=== PATIENT | female | born 1990 | race Caucasian/White ===

== ENCOUNTER → 2016-10-01 | Outpatient (CLI) | payer OTHER ==
[~2016-10-01] MED LIST: BCPILLS PO; MTR600X PO; SERT25TA PO
== END | disposition home or self-care (01) ==
LOC: C.PAPS 12:49
PROVIDERS: ATTEND Obstetrics & Gynecology
DX: Z01.419 Encounter for gynecological examination (general) (routine) without abnormal findings (principal)

== ENCOUNTER → 2016-12-02 | Outpatient (CLI) | payer OTHER | END | disposition home or self-care (01) | LOC: C.LAB1850 17:05 | PROVIDERS: ATTEND Obstetrics & Gynecology | DX: Z33.1 Pregnant state, incidental (principal) ==

== ENCOUNTER → 2016-12-04 | Day surgery (SDC) | payer OTHER ==
[2016-12-03 15:44] LABS: BASO % 0.3 %; BASO ABS # 0.02 K/uL (0-0.2); COMPLETE YES; EOS % 4.1 %; HEMATOCRIT 40.5 % (37-47); IG% 0.3 %; LYMPH % 26.5 %; LYMPH ABS # 1.83 K/uL (1.2-3.4); MEAN CELL VOLUME 91.6 fL (80-100); MEAN CORPUSCULAR HEMOGLOBIN 31.7 pg (25-34); MEAN CORPUSCULAR HGB CONC 34.6 g/dl (32-36); MEAN PLATELET VOLUME 10.1 fL (7.4-10.4); MONO % 6.7 %; NEUT % 62.1 %; PLATELET COUNT 300 K/uL (130-400); RED BLOOD COUNT 4.42 M/uL (4.2-5.4); WHITE BLOOD COUNT 6.91 K/uL (4.8-10.8)
[~2016-12-04] VITALS: Ht 165.1 cm; Wt 66.0 kg
[~2016-12-04] MED LIST changes: +ATROPINE SULFATE 0.1 MG/ML 5ML SYR IV PRN; +DEXAMETHASONE SOD INJ 4 MG/ML VIAL ONE; +DOXYCYCLINE HYCLATE 100 MG CAP PO SCH; +EpHEDrine SULFATE INJ 50 MG/ML AMP IV PRN; +FENTANYL CITRATE INJ 50 MCG/1 ML 2 ML VIAL IV PRN; +FENTANYL CITRATE INJ 50 MCG/1 ML 2 ML VIAL ONE; +FLUMAZENIL 0.1 MG/1 ML 10 ML VIAL IV PRN; +IBUPROFEN 600 MG TAB PO PRN; +KETOROLAC TROMETHAMINE 30 MG/ML VIAL ONE; +LABETALOL HCL IV 5 MG/ML 20ML IV PRN; +LACTATED RINGER'S 1000ML 1,000 ML IV SCH; +LIDOCAINE HCL 2% 2 ML VIAL (20MG/ML) ONE; +MIDAZOLAM HCL 1 MG/ML 2ML VIAL ONE; +NALOXONE HCL 0.4 MG/1 ML VIAL/CARP IV PRN; +ONDANSETRON INJ 2 MG/ML 2 ML VIAL IV PRN; +ONDANSETRON INJ 2 MG/ML 2 ML VIAL ONE; +OXYCODONE/ACETAMINOPHEN 5-325 TAB PO PRN; +OXYTOCIN INJ 10 UNITS/ML VIAL ONE; +PROMETHAZINE HCL INJ 12.5 MG in SODIUM CHLORIDE 0.9% 50ML 50 ML IV PRN; +PROMETHAZINE HCL INJ 25 MG in SODIUM CHLORIDE 0.9% 50ML 50 ML IV PRN; +PROPOFOL IV EMULSION 10 MG/ML 20 ML VIAL IV ONE; +SODIUM CHLORIDE 0.9% 1000ML 1,000 ML IV SCH
[2016-12-04 08:19] VITALS: BP 132/68; PULSE 82; TEMP 36.6; O2SAT 100; Ht 165.1 cm; Wt 66.0 kg
--- NOTE | 2016-12-04 09:53 | History & Physical Bridge Note ---
H&P Re-Evaluation Bridge Note: I have examined the patient, reviewed the History & Physical and in the interval since the performance of the History & Physical I have noted the following changes of clinical significance: No changes noted
--- NOTE | 2016-12-04 11:00 | Discharge Instructions ---
Discharge Instructions Date of Service Dec 04, 2016. Admission Reason for Admission: Missed Discharge Discharge Diagnosis / Problem: recovery from miscarriage Discharge Goals Goal(s): Routine recovery after surgery Activity Recommendations Activity Limitations: per Instructions/Follow-up section . Instructions / Follow-Up Instructions / Follow-Up ACTIVITY RECOMMENDATIONS: * Avoid tampons, douching, hot tubs, pools, and intercourse until bleeding has stopped. * May shower as usual. * No strenuous activity for 24-48 hours. After 24-48 hours, you may do anything you feel like doing (driving and sports are okay). SPECIAL CARE INSTRUCTIONS: Special Diet: * Mild nausea may occur in the immediate post-operative period. * Take clear liquids such as tea, cola or bouillon until all nausea has subsided; you may then resume your normal diet. Special Care: * Light bleeding and vaginal spotting can last from a few days to 3-4 weeks. Call your doctor if bleeding becomes heavier than the heaviest part of your period. * Check your temperature twice a day for one week. If it goes above 100.4 degrees Fahrenheit (38.0 Celsius), notify your doctor. * Call your doctor's office for an appointment for 6 weeks after your surgery. FOLLOW-UP VISIT: Call your doctor's office for an appointment for 6 weeks after your surgery. Current Hospital Diet Patient's current hospital diet: Discharge Diet Recommended Diet: Regular Diet Procedures Procedures Performed: Dilation, Evacuation, and Curettage Pending Studies Studies pending at discharge: no Medical Emergencies . Who to Call and When: Medical Emergencies: If at any time you feel your situation is an emergency, please call 911 immediately. . Non-Emergent Contact Non-Emergency issues call your: Industrial [employer] Safety Professor . . "Provider Documentation" section prepared by Jennifer Poon. . VTE Core Measure Inpt VTE Proph given/why not?: Treatment not indicated
--- NOTE | 2016-12-04 11:22 | Anesthesiology Progress Note ---
Anesthesia Post Op Note Date & Time Dec 04, 2016 at 11:21 Vital Signs Pain Intensity: 4 Vital Signs Past 12 Hours Date Time Temp Pulse Resp B/P Pulse Ox O2 Delivery O2 Flow Rate FiO2 12/04/16 11:06 90 15 100 12/04/16 11:06 91 15 12/04/16 11:05 124/76 12/04/16 11:01 70 13 100 12/04/16 11:01 72 13 12/04/16 11:00 133/84 12/04/16 10:56 72 13 12/04/16 10:56 71 13 100 12/04/16 10:55 128/84 12/04/16 10:51 87 16 12/04/16 10:51 85 16 100 12/04/16 10:50 135/86 12/04/16 10:47 137/86 12/04/16 10:46 36.4 98 16 137/86 100 Mask 10 12/04/16 08:19 36.6 82 20 132/68 100 Room Air Notes Mental Status: alert / awake / arousable, participated in evaluation Pt Amnestic to Procedure: Yes Nausea / Vomiting: adequately controlled Pain: adequately controlled Airway Patency, RR, SpO2: stable & adequate BP & HR: stable & adequate Hydration State: stable & adequate Anesthetic Complications: no major complications apparent
[2016-12-04 11:34] VITALS: BP 133/74; PULSE 73; TEMP 37; O2SAT 99
[2016-12-04 11:44] VITALS: BP 133/74; PULSE 73; TEMP 37; O2SAT 99
[2016-12-04 12:05] VITALS: BP 142/81; PULSE 86; O2SAT 100
[2016-12-04 12:35] VITALS: BP 128/73; PULSE 82; TEMP 36.6; O2SAT 100
--- NOTE | 2016-12-04 13:45 | OPERATIVE REPORT ---
DATE OF OPERATION: 12/04/2016 PREOPERATIVE DIAGNOSIS: Missed at 9 weeks. POSTOPERATIVE DIAGNOSIS: Same. PROCEDURE: D\T\E. ANESTHESIA: General. BLOOD LOSS: 50 mL. HISTORY OF PRESENT ILLNESS: The patient is a 26-year-old G1, P0 white female who had been taking oral contraceptives but had a lapse in her prescription. She had a positive test and following this had a quantitative hCG of 12,000. An ultrasound was done to confirm viability and dating and she was noted to have no heart activity present with a 9-week pole. The patient had been counseled on options on management of the missed . She wishes to proceed with a D\T\E. She understands the risks of procedure and is willing to proceed. GROSS FINDINGS: Uterus is gravid and consistent with 9 weeks gestation. There are no adnexal masses present. Cervix is long, thick and closed. PROCEDURE IN DETAIL: The patient received adequate general anesthetic, she was prepped and draped in the usual sterile fashion. After bladder was emptied, a weighted speculum was placed in the vagina and the anterior lip of the cervix was grasped with a single tooth tenaculum. Cervix was then dilated to a #29 Hanks dilator. A #8 evacuator was used to evacuate the contents of the uterus. Post evacuation, curettage revealed good uterine cry throughout. Bleeding was satisfactory at the end of the case. The patient tolerated the procedure well and the tenaculum site also had satisfactory hemostasis. I attest to the content of the Intraoperative Record and any orders documented therein. Any exceptio ns are noted below.
== END | disposition home or self-care (01) ==
LOC: C.ACU 07:32
PROVIDERS: ATTEND Obstetrics & Gynecology
DX: O02.1 Missed abortion (principal); Z3A.09 9 weeks gestation of pregnancy

== ENCOUNTER → 2017-02-24 | Outpatient (CLI) | payer OTHER ==
[~2017-02-24] MED LIST changes: -ATROPINE SULFATE 0.1 MG/ML 5ML SYR IV PRN; -BCPILLS PO; -DEXAMETHASONE SOD INJ 4 MG/ML VIAL ONE; -DOXYCYCLINE HYCLATE 100 MG CAP PO SCH; -EpHEDrine SULFATE INJ 50 MG/ML AMP IV PRN; -FENTANYL CITRATE INJ 50 MCG/1 ML 2 ML VIAL IV PRN; -FENTANYL CITRATE INJ 50 MCG/1 ML 2 ML VIAL ONE; -FLUMAZENIL 0.1 MG/1 ML 10 ML VIAL IV PRN; -IBUPROFEN 600 MG TAB PO PRN; -KETOROLAC TROMETHAMINE 30 MG/ML VIAL ONE; -LABETALOL HCL IV 5 MG/ML 20ML IV PRN; -LACTATED RINGER'S 1000ML 1,000 ML IV SCH; -LIDOCAINE HCL 2% 2 ML VIAL (20MG/ML) ONE; -MIDAZOLAM HCL 1 MG/ML 2ML VIAL ONE; -NALOXONE HCL 0.4 MG/1 ML VIAL/CARP IV PRN; -ONDANSETRON INJ 2 MG/ML 2 ML VIAL IV PRN; -ONDANSETRON INJ 2 MG/ML 2 ML VIAL ONE; -OXYCODONE/ACETAMINOPHEN 5-325 TAB PO PRN; -OXYTOCIN INJ 10 UNITS/ML VIAL ONE; -PROMETHAZINE HCL INJ 12.5 MG in SODIUM CHLORIDE 0.9% 50ML 50 ML IV PRN; -PROMETHAZINE HCL INJ 25 MG in SODIUM CHLORIDE 0.9% 50ML 50 ML IV PRN; -PROPOFOL IV EMULSION 10 MG/ML 20 ML VIAL IV ONE; -SODIUM CHLORIDE 0.9% 1000ML 1,000 ML IV SCH
[2017-02-25 23:41] LABS: CHLAMYDIA TRACH RNA*** NOT DETECTED (NOT DETECTED); GC (NEIS GONORRHOEAE)RNA** NOT DETECTED (NOT DETECTED)
== END | disposition home or self-care (01) ==
LOC: C.LAB1850 09:54
PROVIDERS: ATTEND Obstetrics & Gynecology
DX: Z11.3 Encounter for screening for infections with a predominantly sexual mode of transmission (principal)

== ENCOUNTER → 2017-11-07 | Outpatient (CLI) | payer OTHER ==
[2017-11-07 16:31] LABS: BASO % 0.5 %; BASO ABS # 0.04 K/uL (0-0.2); EOS % 2.7 %; EOS ABS # 0.21 K/uL (0-0.5); HEMATOCRIT 36.4 % (37-47); HEMOGLOBIN 12.5 g/dL (12.0-16.0); IG# 0.01 K/uL (0.00-0.02); LYMPH % 21.5 %; LYMPH ABS # 1.67 K/uL (1.2-3.4); MEAN CELL VOLUME 91.2 fL (80-100); MEAN CORPUSCULAR HEMOGLOBIN 31.3 pg (25-34); MEAN CORPUSCULAR HGB CONC 34.3 g/dl (32-36); MEAN PLATELET VOLUME 10.9 fL (7.4-10.4); MONO % 4.4 %; MONO ABS # 0.34 K/uL (0.11-0.59); NEUT % 70.8 %; NEUT ABS # 5.49 K/uL (1.4-6.5); PLATELET COUNT 302 K/uL (130-400); RED CELL DISTRIBUTION WIDTH CV 12.3 % (11.5-14.5); RED CELL DISTRIBUTION WIDTH SD 41.4 fL (36.4-46.3); WHITE BLOOD COUNT 7.76 K/uL (4.8-10.8)
== END | disposition home or self-care (01) ==
LOC: C.LABBC 13:35
PROVIDERS: ATTEND Internal Medicine
DX: R53.81 Other malaise (principal)

== ENCOUNTER → 2017-11-12 | Outpatient (CLI) | payer OTHER | END | disposition home or self-care (01) | LOC: C.PAPS 16:09 | PROVIDERS: ATTEND Obstetrics & Gynecology | DX: Z12.4 Encounter for screening for malignant neoplasm of cervix (principal) ==

== ENCOUNTER 2024-05-19 07:38 | Inpatient (IN) ==
[2024-05-19] MEDS ORDERED: LIDOCAINE 1% LOCAL 20 ML VIAL INFIL PRN (07:59)
[2024-05-19] MEDS ORDERED: OXYTOCIN 30 UNITS/NSS 30 UNITS/500 ML BAG IV PRN (07:59)
[2024-05-19] MEDS: LACTATED RINGER'S 1,000 ML IV PRN (08:50)
[2024-05-19 08:59] LABS: Hematocrit (blood only) 37.4 % (37.0-47.0); Hemoglobin 12.7 g/dl (12.0-16.0); Mean Corpuscular Hemoglobin 29.5 pg (25.0-34.0); Mean Platelet Volume 11.4 fL (9.4-12.4); Platelet Count 227 K/uL (130-400); RDW Coefficient of Variation 13.2 % (11.5-14.5); RDW Standard Deviation 41.3 fL (36.4-46.3); White Blood Count 8.57 K/ul (4.8-10.8)
[2024-05-19] MEDS: OXYTOCIN 30 UNITS/NSS 30 UNITS/500 ML BAG IV PRN (09:28)
--- NOTE | 2024-05-19 11:15 | History & Physical Report ---
Date of Service May 19, 2024 Assessment & Plan (1) Post term over 40 weeks: Plan: Intrauterine at 40-3/7 weeks for induction of labor because of postterm . Cervical balloon successfully placed and Pitocin induction per protocol was begu n. Epidural analgesia when requested Anticipate vaginal . Admission and Anticipated Discharge Date Admission Date: May 19, 2024 History of Present Illness Primary Care Provider: Chaparro Casiano DO Patient is a 33-year-old 2 para 0-0-1-0 female EDC of 05/16/2024 who presents at 40-3/7 weeks for induction of labor. has been complicated by GDM diet-controlled. testing has all been reassuring. GBS is negative. Blood type is AB-. Allergies Allergy/AdvReac Type Severity Reaction Status Date / Time No Known Allergies Allergy Verified 05/18/24 10:36 Home Medications Medication Instructions Recorded Confirmed Type acetone (urine) test (Ketone Urine #50 ea 03/18/24 05/18/24 Rx Test strips) blood sugar diagnostic (OneTouch #150 ea 03/18/24 05/18/24 Rx Verio test strips) blood-glucose meter (OneTouch #1 ea 03/18/24 05/18/24 Rx Verio Reflect Meter) lancets 33 gauge (OneTouch Delica #150 ea 03/18/24 05/18/24 Rx Plus Lancet) vits no.130-ferrous fum 1 tab PO DAILY 05/19/24 05/19/24 History 27 mg iron-folic acid 800 mcg tablet ( Vitamin) Patient History Medical History (Updated 05/19/24 @ 11:14 by Jennifer Jackson MD, FACOG) History of chicken pox History of atopic dermatitis Paronychia of finger Hypomastia Chlamydia Cyst of left ovary Cold intolerance Missed Monoarticular arthritis Anxiety Alcoholism Surgical History S/P dilatation and curettage Hx of breast implants, bilateral H/O tooth extraction H/O cosmetic surgery Family History Father Hypertension Grandfather (Maternal) Skin cancer Denies family history of Ovarian cancer Prostate cancer Diabetes Myocardial infarction Breast cancer Lung cancer Colorectal cancer Stroke Social History (Updated 09/29/23 @ 13:05 by Mica Michelle Smoking Status: Never smoker Second Hand Exposure: No; Do You Dip or Chew Tobacco: No; Hx Alcohol Use: No (none during per pt) Hx Substance Use: No Preferred Language: Citizen Of [place] Communication Ability: Effective Visual Impairment: No Limitations Hearing Ability: Normal Wood Die Maker Required: No Beliefs That Will Affect Care: None marital status: Single marital status details: bucky Webster [phone] Current Living Situation: Spouse Current Living Situation Comment: lives with fob, cat-fob changing litter current occupational status: employed current occupation: Senior Java J2Ee Developer at [employer] How many Children do You have: 0 Other Information That Helps Us Care for You: No Feels Safe at Home: Yes Safety Concerns: Feels Safe At This Time Childhood Exposure to Second-Hand Smoke: Yes Diet: regular caffeine: Yes Dental Care, Regularly: Yes Physical Activity Frequency: Does not Exercise Seatbelt Use: always Sunscreen Use: Yes Assistive Devices: None Review of Systems All systems reviewed & are unremarkable except as noted in HPI & below Physical Exam Constitutional: WD/WN, vitals as above Psychiatric: A+Ox3, euthymic affect Genitourinary: OB Exam Abdomen: + vertex (by exam and ultrasound), + estimated weight (6-7 pounds) and + irregular contractions (rare) Manual OB Exam: + cervical dilation 1 cm, + cervical effacement 50% and + station -2 OB Exam Monitor Tracing: + external FHT monitor used, + external uterine monitor used, + category I and + normal FHT variability Speculum was placed vaginally and cervix visualized. A Foster catheter was then inserted into the cervical canal to the internal os. 30 cc of water were then instilled into the balloon. The catheter was then put on traction and secured to her left thigh. Patient tolerated procedure well. Results & Data Vital Signs (Past 12 Hours) Vital Signs Temp Pulse Resp BP 05/19/24 10:30 80 05/19/24 10:30 133/79 05/19/24 09:30 20 05/19/24 09:30 20 05/19/24 09:28 99 H 05/19/24 09:28 137/85 05/19/24 09:00 20 05/19/24 09:00 20 05/19/24 08:10 99.1 F 20 05/19/24 07:57 94 H 125/76 Coding Level of Care Code 73968 INT INP/OBS CARE MIN Diagnoses Post term over 40 weeks O48.0
[2024-05-19] MEDS ORDERED: fentaNYL citrate PF 100 MCG/2 ML VIAL EPI PRN (15:48)
[2024-05-19] MEDS ORDERED: NALOXONE HCL 0.4 MG/1 ML VIAL/CARP IV PRN (15:48)
[2024-05-19] MEDS ORDERED: NALOXONE HCL 1 MG in SODIUM CHLORIDE 0.9% 1,000 ML IV PRN (15:48)
[2024-05-19] MEDS ORDERED: diphenhydrAMINE 50 MG/ML VIAL IV PRN (15:48)
[2024-05-19] MEDS ORDERED: ONDANSETRON INJ 2 MG/ML 2 ML VIAL IV PRN (15:48)
[2024-05-19] MEDS ORDERED: NALBUPHINE HCL INJ 10 MG/ML AMP IV PRN (15:48)
[2024-05-19] MEDS ORDERED: LIDOCAINE 2% MPF LOCAL 5 ML VIAL EPI PRN (15:48)
[2024-05-19] MEDS ORDERED: SODIUM CHLORIDE 0.9% PF INJ 10 ML VIAL EPI PRN (15:48)
[2024-05-19] MEDS ORDERED: ePHEDrine sulfate 50 MG/ML AMP IV PRN (15:48)
[2024-05-19] MEDS ORDERED: ROPIVACAINE 0.5% PF 5 MG/ML 20 ML VIAL EPI PRN (15:48)
[2024-05-19] MEDS ORDERED: BUPIVACAINE 0.25% PF 30 ML VIAL EPI PRN (15:48)
--- NOTE | 2024-05-19 15:48 | Anesthesiology Consultation ---
Date of Service May 19, 2024 Assessment & Plan ASA ASA2 Proposed Anesthesia Anesthesia Type: Labor Epidural Risk / Benefits Reviewed With: PT / POA / Parent / Guardian, Accepts Plan and Informed Consent Obtained History Height/Weight Height: 5 ft 5 in Weight: 98.883 kg Allergies Allergy/AdvReac Type Severity Reaction Status Date / Time No Known Allergies Allergy Verified 05/18/24 10:36 Medications Home Medications Medication Instructions Recorded Confirmed Last Taken acetone (urine) test (Ketone Urine #50 ea 03/18/24 05/18/24 Unknown Test strips) blood sugar diagnostic (OneTouch #150 ea 03/18/24 05/18/24 Unknown Verio test strips) blood-glucose meter (OneTouch #1 ea 03/18/24 05/18/24 Unknown Verio Reflect Meter) lancets 33 gauge (OneTouch Delica #150 ea 03/18/24 05/18/24 Unknown Plus Lancet) vits no.130-ferrous fum 1 tab PO DAILY 05/19/24 05/19/24 Unknown 27 mg iron-folic acid 800 mcg tablet ( Vitamin) Active Medications Generic Name Dose Route Start Last Admin Trade Name Freq PRN Reason Stop Dose Admin Fentanyl/Bupivacaine/Sodium Chlor 100 ml 05/19/24 15:48 05/19/24 16:21 Fentanyl 2 Mcg/Ml Bupivacaine 0.125%-Nss 100ml Bag EPI 05/20/24 15:47 100 ml PRN PRN Administration Pain R/T Labor Protocol Oxytocin 30 units in 500 mls @ 12 mls/hr 05/19/24 07:59 05/19/24 13:08 Pitocin 30 Units/Nss IV 05/21/24 07:58 0.72 units/hr .Q24H PRN 12 mls/hr Labor Induction/Augmentation Titration Protocol 0.72 UNITS/HR Lactated Ringer's 1,000 mls @ 125 mls/hr 05/19/24 07:59 05/19/24 16:07 Lr IV 05/21/24 07:58 Infused .Q8H PRN Infusion L&D Protocol Protocol Past Medical History Medical History History of chicken pox History of atopic dermatitis Paronychia of finger Hypomastia Chlamydia Cyst of left ovary Cold intolerance Missed Monoarticular arthritis Anxiety Alcoholism Exercise / Class Metabolic Activity II 4-5 Yardwork/Stairs/Walk up hill Past Family History Family History Father Hypertension Grandfather (Maternal) Skin cancer Denies family history of Ovarian cancer Prostate cancer Diabetes Myocardial infarction Breast cancer Lung cancer Colorectal cancer Stroke Past Surgical History Surgical History S/P dilatation and curettage Hx of breast implants, bilateral H/O tooth extraction H/O cosmetic surgery Past Anesthesia History No Hx of Anesthesia Complications and No Family Hx of Anesthesia Complications History of PONV No Hx of PONV and No Hx of Motion Sickness Social History Smoking Status: Never smoker Do You Dip or Chew Tobacco: No Hx Alcohol Use: No (none during per pt) Alcohol type: wine and hard liquor Hx Substance Use: No substance use type: does not use Review of Systems denies fever/cough/ colds/ chest pain/ SOB/ HENRI denies HENRI Physical Exam Vital Signs Last Vital Signs Temp 37.3 C 05/19/24 08:10 Pulse 121 H 05/19/24 16:36 Resp 20 05/19/24 15:30 BP 146/74 H 05/19/24 16:36 Pulse Ox 100 05/19/24 16:36 ENMT Mouth: no TMJ abnormality and no dentition abnormality Thyromental Distance: > or= 3.5 Finger Breadths Mallampati Class: II Neck neck extension not limited Respiratory normal respiratory effort; no respiratory distress Auscultation: lungs clear to auscultation bilaterally Cardiovascular Rate/Rhythm: regular rate and regular rhythm Neurologic moves all extremities Psychiatric Orientation: alert and oriented x 3 Testing Laboratory Results 05/19/24 08:44 Blood Type AB Negative 05/19/24 08:44 Blood Type Cancelled 05/19/24 08:44 Antibody Screen Cancelled 05/19/24 08:44 Antibody Screen NEGATIVE 05/19/24 08:44 05/19/24 09:34 POC Glucose 91
[2024-05-19] MEDS: fentANYL 2 MCG/ML BUPIVacaine 0.125%-NSS 100ML BAG EPI PRN (16:21)
[2024-05-19] MEDS: LIDOCAINE 2%/EPINEPHRINE 1:200,000 20 ML PF EPI STA (16:21)
[2024-05-19] MEDS: fentaNYL citrate PF 100 MCG/2 ML VIAL EPI STA (16:25)
[2024-05-19] MEDS: fentANYL 2 MCG/ML BUPIVacaine 0.125%-NSS 100ML BAG ONE (16:26)
[2024-05-19] MEDS: BUPIVACAINE 0.25% PF 30 ML VIAL ONE (16:26)
[2024-05-19] MEDS: ePHEDrine sulfate 50 MG/ML AMP ONE (16:26)
[2024-05-19] MEDS: SODIUM CHLORIDE 0.9% PF INJ 10 ML VIAL ONE (16:26)
[2024-05-19] MEDS: BUPIVACAINE 0.25% PF 30 ML VIAL EPI STA (16:26)
[2024-05-19] MEDS: fentaNYL citrate PF 100 MCG/2 ML VIAL ONE (16:26)
[2024-05-19] MEDS: LIDOCAINE 2%/EPINEPHRINE 1:200,000 20 ML PF ONE (16:26)
[2024-05-19] MEDS: SODIUM CHLORIDE 0.9% PF INJ 10 ML VIAL EPI STA (18:03)
[2024-05-19] MEDS: ACETAMINOPHEN 325 MG TAB PO PRN (21:10)
[2024-05-20] MEDS ORDERED: OXYTOCIN 30 UNITS/NSS 30 UNITS/500 ML BAG IV PRN (04:24)
[2024-05-20] MEDS ORDERED: BENZOCAINE 20% SPRY 85 APPLN/85 GM CAN EXT PRN (04:24)
[2024-05-20] MEDS ORDERED: HYDROCORTISONE ACETATE 25 MG SUPP PR PRN (04:24)
[2024-05-20] MEDS ORDERED: DIPHTHER/TETAN/PERTUS Vaccine (Tdap, Adol/Adult) 0.5mL IM ONE (04:24)
[2024-05-20] MEDS ORDERED: oxyCODONE/ACETAMINOPHEN 5mg/325mg TAB PO PRN (04:24)
--- NOTE | 2024-05-20 04:33 | Delivery Summary ---
Vaginal Delivery Summary Date of Service May 20, 2024 Vaginal Delivery Summary VAVD and 2nd Degree LAC Patient is a 33-year-old 1 P0 who presented at 40-3/7 weeks for induction of labor because of postterm . was complicated by diet-controlled GDM. Induction was begun with a cervical balloon and Pitocin per labor and delivery protocol. She received effective epidural analgesia. Membranes were ruptured for clear fluid. She progressed to full dilation with the urge to push. She pushed effectively for 2-1/2 hours with the head at +2 station but without further descent because of maternal exhaustion. After her bladder was emptied for a small amount of urine, she was verbally consented for vacuum assisted delivery. The Kiwi vacuum was placed on the vertex and through 2 contractions, the head was brought to . The vacuum popped off with each contraction. A midline episiotomy was done as the perineum was tight. With 1 push the head was delivered and the rest the delivered quickly. There was a loose nuchal cord which was reduced right after the head was delivered. There was terminal meconium noted. The was not vigorous upon delivery, therefore the cord was clamped and cut and the handed to the nursing staff who was in attendance. Please see the nursing notes for their assessment and treatment. After cord blood was obtained, the placenta was expressed intact with a three-vessel cord. bleeding was controlled with fundal massage and dilute Pitocin. The second-degree episiotomy was repaired with 3-0 chromic in the usual fashion. QBL is 51 cc. [facility] Vaginal Delivery Charge Delivery Type Details: VAVD and 2nd Degree LAC
--- NOTE | 2024-05-20 04:57 | Anesthesia Procedure Note ---
Date of Service May 20, 2024 Anesthesia Post Epidural Note Vital Signs Vital Signs: Temp Pulse Resp BP Pulse Ox 36.6 C 109 H 18 137/71 97 05/20/24 01:20 05/20/24 04:55 05/19/24 21:10 05/20/24 04:55 05/20/24 04:51 Notes Mental Status: alert / awake / arousable and participated in evaluation Nausea / Vomiting: adequately controlled Pain: adequately controlled Airway Patency, RR, SpO2: stable & adequate BP & HR: stable & adequate Hydration State: stable & adequate Neuraxial Anesthesia: was administered and sensory block resolved Anesthetic Complications: no major complications apparent and Pt Satisfied with anesthetic care Epidural: Removed without complications and With tip intact
[2024-05-20] MEDS: ACETAMINOPHEN 325 MG TAB PO PRN (07:43)
[2024-05-20] MEDS: IBUPROFEN 600 MG TAB PO PRN (07:43)
[2024-05-20] MEDS: DOCUSATE SODIUM 100 MG CAP PO SCH (07:43)
[2024-05-20] MEDS: PRENATAL VITAMIN 1 TAB PO SCH (07:43)
[2024-05-20] MEDS ORDERED: INFLUENZA VACC TS2024-25(6m+)/PF (IIV3) 0.5mL Syr IM ONE (08:23)
[2024-05-21 06:31] LABS: Hematocrit (blood only) 31.4 % (37.0-47.0); Hemoglobin 10.7 g/dl (12.0-16.0); Mean Corpuscular Hemoglobin 30.1 pg (25.0-34.0); Mean Corpuscular Hgb Conc 34.1 g/dL (32.0-36.0); Mean Corpuscular Volume 88.5 fL (80.0-100.0); Mean Platelet Volume 11.4 fL (9.4-12.4); Platelet Count 194 K/uL (130-400); RDW Coefficient of Variation 13.4 % (11.5-14.5); RDW Standard Deviation 43.5 fL (36.4-46.3); Red Blood Count 3.55 M/uL (4.20-5.40); White Blood Count 17.99 K/ul (4.8-10.8)
--- NOTE | 2024-05-21 06:44 | Obstetrical Progress Note ---
Date of Service May 21, 2024 Assessment & Plan (1) Encounter for assessment: Plan: Patient is PPD 1 s/p vavd and doing well - Eating well, voiding well, ambulating well - vitals reviewed and within normal limits - pain well controlled with analgesics - OOB, ambulation, diet progression as tolerated - Blood type: AB-, GBS neg, rubella immune - Plan to discharge today afternoon - After discharge, 6 week follow up with OB Admission and Anticipated Discharge Date Admission Date: May 19, 2024 Supervising Physician Co-Signing Physician Notes Resident Physician Supervision Note: I was present with Dr. Fair during the history and exam. I discussed the case with the resident and agree with the findings and plan as documented in the note. Any exceptions or clarifications are listed here: doing well, eating, voiding, ambulating. abd soft ff down nt, ext nt calves. ppd #1 s/p vavd, doing well, ready for dc home. bottle feeding, rh neg, baby rhneg, ri. instructions reviewed. f/u 6wks pp check. Documented By: Constance Hu MD, FACOG Subjective 33 yo post- day 1 s/p VAVD 05/20 complicated by gestational diabetes mellitus and 2nd degree episiotomy Ambulation: ambulating normally Voiding: no voiding problems Passing Gas:: Yes Diet Tolerance:: regular diet Lochia:: Small Feeding Type:: bottle feeding Current Pain Level:4-5/10 Resting comfortably this AM in NAD. Denies GIANG, CP, SOB, N/V/D, LE pain/swelling. Physical Exam Physical Exam: General: patient resting comfortably, NAD, non-toxic in appearance, answers questions appropriately. Skin: warm, dry, intact HEENT: NC/AT, anicteric sclera, conjunctiva without injection, moist mucus membranes. Heart: +S1/S2, regular, no m/r/g Lungs: equal air entry bilaterally, no rales/rhonchi/wheezes Abd: +BS, soft, NT/ND, uterine fundus firm at umbilicus Ext: warm, no clubbing/cyanosis or edema, Tania's neg. Neuro: nonfocal, speech intact, no facial droop, moving all extremities. Results & Data Vital Signs (Past 12 Hours) Vital Signs Temp Pulse Resp BP Pulse Ox O2 Del Method 05/21/24 04:00 36.6 C 79 16 113/75 99 Room Air 05/21/24 00:30 36.9 C 94 H 18 111/68 96 Room Air 05/20/24 19:14 36.6 C 88 16 121/78 97 Room Air Resident Activity Tracking Resident Involvement: Resident Care Provided Care Provided: OB Delivery (1) Encounter for assessment visit type: exam and care immediately after delivery Qualified Code(s): Z39.0 - Encounter for care and examination of mother immediately after delivery
[2024-05-21] MEDS: bisacodyL 5 MG TABEC PO SCH (20:48)
[2024-05-22] MEDS ORDERED: bisacodyL 10 MG SUPP PR PRN
[2024-05-22 01:41] VITALS: RESP 16; O2SAT 97
[2024-05-22 06:19] LABS: Hematocrit (blood only) 31.9 % (37.0-47.0); Hemoglobin 10.6 g/dl (12.0-16.0)
--- NOTE | 2024-05-22 07:43 | Obstetrical Progress Note ---
Date of Service May 22, 2024 Assessment & Plan (1) Encounter for assessment: Plan: Patient is PPD 2 s/p vavd and doing well - Eating well, voiding well, ambulating well - vitals reviewed and within normal limits - pain well controlled with analgesics - OOB, ambulation, diet progression as tolerated - Blood type: AB-, GBS neg, rubella immune - Plan to discharge today afternoon - After discharge, 6 week follow up with OB Admission and Anticipated Discharge Date Admission Date: May 19, 2024 Supervising Physician Co-Signing Physician Notes Patient seen with resident and agree with the above finding and plan. Stable for discharge Subjective 33 yo post- day 2 s/p VAVD / complicated by gestational diabetes mellitus and 2nd degree episiotomy Ambulation: ambulating normally Voiding: no voiding problems Passing Gas:: Yes Diet Tolerance:: regular diet Lochia:: Small Feeding Type:: bottle feeding Current Pain Level:2-3/10 Resting comfortably this AM in NAD. Denies GIANG, CP, SOB, N/V/D, LE pain/swelling. Physical Exam Physical Exam: General: patient resting comfortably, NAD, non-toxic in appearance, answers questions appropriately. Skin: warm, dry, intact HEENT: NC/AT, anicteric sclera, conjunctiva without injection, moist mucus membranes. Heart: +S1/S2, regular, no m/r/g Lungs: equal air entry bilaterally, no rales/rhonchi/wheezes Abd: +BS, soft, NT/ND, uterine fundus firm at umbilicus Ext: warm, no clubbing/cyanosis or edema, Tania's neg. Neuro: nonfocal, speech intact, no facial droop, moving all extremities. Results & Data Vital Signs (Past 12 Hours) Vital Signs Temp Pulse Resp BP Pulse Ox O2 Del Method 05/22/24 01:36 36.9 C 79 16 138/88 97 Room Air 05/21/24 20:30 36.5 C 92 H 18 139/82 99 Room Air Resident Activity Tracking Resident Involvement: Resident Care Provided Care Provided: OB Delivery (1) Encounter for assessment visit type: exam and care immediately after delivery Qualified Code(s): Z39.0 - Encounter for care and examination of mother immediately after delivery
[2024-05-22 08:11] VITALS: BP 118/79; TEMP 97.7
[2024-05-22 08:45] VITALS: PULSE 78
== END 2024-05-22 11:15 | disposition home or self-care (01) | DRG 807 ==
LOC: 4S1 07:38 → 4E2 05-20 07:24